=== PATIENT | male | born 1980 | race Caucasian/White ===

== ENCOUNTER 2018-09-13 20:09 | Emergency (ER) | payer OTHER ==
[2018-09-13 20:32] VITALS: O2SAT 95
[2018-09-13] MEDS ORDERED: Norco 10/325 MG Tablet PO ONE (20:42)
[2018-09-13] MEDS ORDERED: Norco 10/325 MG Tablet ONE (20:59)
[2018-09-13 21:21] VITALS: BP 132/90; PULSE 78
--- NOTE | 2018-09-13 21:33 | ERPHSYRPT ---
- History of Present Illness Time Seen by Provider: 09/13/18 20:39 Source: patient Exam Limitations: clinical condition Patient Subjective Stated Complaint: pt is alert and oriented. pt is ambulatory with a limp to the left side. pt states he was playing basketball earlier and injured his ankle. pt has swelling to lateral aspect of his ankle and foot on the left side. pt states tenderness upon palpation and weight bearing. ROM limited due to pain. Triage Nursing Assessment: see above Physician History: PATIENT TWISTED HIS LEFT ANKLE AND FOOT WHILE PLAYING BASKETBALL EARLIER TODAY. PATIENT HAS PAIN WITH SWELLING WORSE UPON WEIGHT BEARING. DENIES BRUISINGS. Method of Injury: sports injury, twisted Occurred: this afternoon, yesterday Severity of Pain-Max: severe Severity of Pain-Current: severe Lower Extremities Pain: foot: left, ankle: left Modifying Factors: Improves With: movement Associated Symptoms: unable to bear weight Allergies/Adverse Reactions: No Known Drug Allergies Allergy (Unverified 09/13/18 20:32) Home Medications: Omeprazole 40 mg PO BID 09/13/18 [History] Hx Tetanus, Diphtheria Vaccination/Date Given: Yes (2016) Hx Influenza Vaccination/Date Given: No Immunizations Up to Date: Yes - Review of Systems Constitutional: No Fever, No Chills Musculoskeletal: Injury, Joint Pain, Joint Swelling Neurological: No Dizziness, No Focal Weakness, No Sensory Changes Psychological: No Symptoms Endocrine: No Symptoms Hematologic/Lymphatic: No Symptoms - Past Medical History Pertinent Past Medical History: Yes Neurological History: No Pertinent History ENT History: No Pertinent History Cardiac History: No Pertinent History Respiratory History: No Pertinent History Endocrine Medical History: No Pertinent History Musculoskeletal History: No Pertinent History GI Medical History: GERD History: No Pertinent History Psycho-Social History: Other Male Reproductive Disorders: No Pertinent History Other Medical History: PTSD - Past Surgical History Past Surgical History: Yes Neuro Surgical History: No Pertinent History Cardiac: No Pertinent History Respiratory: No Pertinent History Gastrointestinal: Cholecystectomy Genitourinary: No Pertinent History Musculoskeletal: No Pertinent History Male Surgical History: No Pertinent History Other Surgical History: Rhinoplasty, cleft lip/pallet repair as . - Social History Smoking Status: Former smoker Drug Use: none - Nursing Vital Signs Nursing Vital Signs: Initial Vital Signs Temperature 98.1 F 09/13/18 20:25 Pulse Rate 84 09/13/18 20:25 Blood Pressure 131/73 09/13/18 20:25 O2 Sat by Pulse Oximetry 95 09/13/18 20:25 Pain Scale Pain Intensity 6 - Physical Exam SpO2: 95 Procedures - Splinting Location of Splint: Left, Ankle Type of Splint: Velcro Splint - Radiology Exams Left Ankle X-ray Interpretation: Interpreted by me, Negative (NO FRACTURE OR DISLOCATION, SOFT TISSUE SWELLING LATERAL MALLEOLUS) Left Foot X-ray Interpretation: Interpreted by me, Negative, No Fracture Ordered Tests: Active Orders 24 hr Category Date Time Status Crutches STAT Care 09/13/18 20:44 Active Splint STAT Care 09/13/18 21:08 Active ANKLE (3 VIEWS) Stat Exams 09/13/18 20:43 Taken FOOT (MINIMUM 3 VIEWS) Stat Exams 09/13/18 20:43 Taken Medication Summary Discontinued Medications Generic Name Dose Route Start Last Admin Trade Name Freq PRN Reason Stop Dose Admin Hydrocodone Bitart/Acetaminophen 1 tab 09/13/18 20:42 09/13/18 21:05 [place] 10/325 Mg Tablet PO 09/13/18 20:43 0.5 tab STAT ONE Administration Hydrocodone Bitart/Acetaminophen Confirm 09/13/18 20:59 [place] 10/325 Mg Tablet Administered 09/13/18 21:00 Dose 1 tab .ROUTE .STK-MED ONE - Progress Progress Note: 09/13/18 21:32 [place] 10/325 ORALLY, APPLICATION VELCRO SPLINT WITH CRUTCHES Counseled pt/family regarding: diagnosis, need for follow-up, rad results - Departure Time of Disposition: 21:45 Departure Disposition: Home Clinical Impression: LEFT ANKLE STRAIN, LEFT FOOT STRAIN Condition: Stable Critical Care Time: No Referrals: DOCTOR,NO FAMILY [Primary Care Provider] - Instructions: Ankle Sprain (DC) Additional Instructions: APPLY ICE OVER SWOLLEN ANKLE AND FOOT WITH ELEVATION EVERY 4 HOURS, 30 MINUTES FOR 48 HOURS. [place] 10/325 EVERY 6 HOURS NEEDED FOR PAIN. AMBULATE USING CRUTCHES NONWEIGHT BEARING LEFT FOOT FOR 5 DAYS. CONSULT YOUR PRIMARY CARE PROVIDER FOR FOLLOWUP IN 1 WEEK. Prescriptions: Hydrocodone/APAP 10/325 mg [[place] 10/325 MG Tablet] 1 tab PO Q6H PRN PRN # 14 tablet MDD 4 PRN Reason: Pain
--- NOTE | 2018-09-14 08:22 | XRAY ---
Indication: Pain following basketball injury. Comparison: None 3 views of the left ankle demonstrates anterolateral soft tissue swelling. No other bony, articular, or soft tissue abnormalities.
--- NOTE | 2018-09-14 08:22 | XRAY ---
Indication: Pain following basketball injury. Comparison: None 3 nonweightbearing views of the left foot obtained. No bony, articular, or soft tissue abnormalities.
== END 2018-09-13 21:52 | disposition home or self-care (01) ==
LOC: ED 20:09
DX: S96.912A Strain of unspecified muscle and tendon at ankle and foot level, left foot, initial encounter (principal); X50.1XXA Overexertion from prolonged static or awkward postures, initial encounter; Y93.67 Activity, basketball; F43.10 Post-traumatic stress disorder, unspecified; X58.XXXA Exposure to other specified factors, initial encounter; Y92.9 Unspecified place or not applicable; M25.472 Effusion, left ankle; K21.9 Gastro-esophageal reflux disease without esophagitis
CPT/HCPCS: 73610; 73630; 99284; A9270-GY